=== PATIENT | female | born 1945 | race Caucasian/White ===

== ENCOUNTER 2018-05-26 10:51 | Emergency (ER) | payer MEDICARE ==
[2018-05-26] MEDS: FAMOTIDINE 20 MG TAB PO (11:36)
[2018-05-26] MEDS: ONDANSETRON (ODT) 4 MG TAB ODT (11:36)
[2018-05-26] MEDS: HYDROCODONE/APAP (5/325) TAB PO (11:36)
[2018-05-26 11:38] LABS: URINE PH (Dip) POC 7.5 (5.0-8.5)
[2018-05-26 11:38] LABS: URINE BLOOD (Dip) POC Negative (NEGATIVE); URINE GLUCOSE (Dip) POC Negative (NEGATIVE); URINE KETONES (Dip) POC Negative (NEGATIVE); URINE LEUKOCYTE EST (Dip) POC 1+ (NEGATIVE); URINE NITRITE (Dip) POC Negative (NEGATIVE); URINE TOTAL PROTEIN POC Negative (NEGATIVE)
[2018-05-26 11:47] LABS: ADD MAN DIFF? NO
[2018-05-26 11:48] LABS: BASOPHILS % 0.3 % (0.0-2.0); EOSINOPHILS % 0.3 % (0.0-7.0); HEMATOCRIT 43.4 % (37.0-47.0); HEMOGLOBIN 14.6 g/dl (12.0-16.0); LYMPHOCYTES # 1.8 10^3/ul (0.8-2.9); LYMPHOCYTES % 23.1 % (15.0-51.0); MEAN CORPUSCULAR HGB CONC 33.6 g/dl (32.0-37.0); MEAN PLATELET VOLUME 10.7 fl (7.4-10.4); MONOCYTE # 0.5 10^3/ul (0.3-0.9); MONOCYTES % 7.1 % (0.0-11.0); NEUTROPHIL # 5.2 10^3/ul (1.6-7.5); NEUTROPHILS % 68.8 % (39.0-77.0); PLATELET COUNT 235 10^3/UL (140-415); RED BLOOD COUNT 4.43 10^6/ul (4.20-5.40); RED CELL DISTRIBUTION WIDTH 11.6 % (11.5-14.5)
[2018-05-26 11:48] LABS: WHITE BLOOD COUNT 7.6 10^3/ul (4.8-10.8)
[2018-05-26 12:10] LABS: ANION GAP 9 (5-13); BLOOD UREA NITROGEN 14 mg/dl (7-20); CALCIUM 9.4 mg/dl (8.4-10.2); CARBON DIOXIDE 28 mmol/L (21-31); CHLORIDE 98 mmol/L (97-110); CREATININE 0.53 mg/dl (0.44-1.00); GLUCOSE 109 mg/dl (70-220); SODIUM 135 mmol/L (135-144)
== END 2018-05-26 12:55 | disposition home or self-care (01) ==
LOC: FTE 10:51
DX: M54.5 Low back pain (principal)
CPT/HCPCS: 80048; 81003; 85025; 99283